=== PATIENT | female | born 1970 | race Caucasian/White ===

== ENCOUNTER 2020-09-27 09:44 | Outpatient (REF) | payer OTHER, SELFPAY ==
[2020-09-27 10:15] LABS: COVID-19 Test Negative (Negative)
== END 2020-09-27 09:45 | disposition home or self-care (01) ==
LOC: HO.EMPCOV 09:44
PROVIDERS: PCP Nurse Practitioner Pediatrics; Visit Provider Internal Medicine
DX: Z20.828 Contact with and (suspected) exposure to other viral communicable diseases (principal)
CPT/HCPCS: 87635; C9803

== ENCOUNTER 2020-11-30 09:07 | Outpatient (REF) | payer OTHER, SELFPAY ==
[2020-11-30 09:43] LABS: COVID-19 Test Negative (Negative)
== END 2020-11-30 09:08 | disposition home or self-care (01) ==
LOC: HO.EMPCOV 09:07
PROVIDERS: Visit Provider Internal Medicine
DX: Z20.822 Contact with and (suspected) exposure to COVID-19 (principal)
CPT/HCPCS: 36415; 87635; C9803